=== PATIENT | female | born 2000 | race Caucasian/White ===

== ENCOUNTER 2020-07-04 15:01 | Emergency (ER) | payer OTHER ==
--- NOTE | 2020-07-04 15:23 | ER Document Report ---
ED Medical Screen (RME) - General Stated Complaint: HEADACHE, BLURRY VISION Time Seen by Provider: 07/04/20 15:18 Notes: HPI: 19-year-old female presenting for left temporal headache that has occurred twice in the last 4 days. Patient states it is a sharp pain through the left faith that results in blurring of vision in both eyes 20 to 30 seconds then completely resolves. Denies neck pain denies nausea vomiting. Denies weakness numbness or tingling, slurred speech or facial droop with this. She called her PCP who recommended she come to the emergency department. She is from out of town and will be going home this weekend and will be following up shortly with her PCP. Denies headache or blurred vision currently. No known family history of aneurysm PHYSICAL EXAMINATION: Patient is asymptomatic at this time. No photophobia. No nystagmus. Lung sounds are clear to auscultation regular rate and rhythm I have greeted and performed a rapid initial assessment of this patient. A comprehensive ED assessment and evaluation of the patient, analysis of test results and completion of medical decision making process will be conducted by an additional ED providers.
--- NOTE | 2020-07-04 16:06 | ER Document Report ---
Doctor's Note Notes: 07/04/20 16:02 19-year-old female I was asked see along with midlevel provider for evaluation of some headache symptoms. I have reviewed the chart in detail. I have personally supplemented history with patient and performed a bedside examination. Left temporal headache that has occurred twice in the last 4 days. Patient states it is a sharp pain through the left latter day that results in blurring of vision in both eyes 20 to 30 seconds then completely resolves. No reported trauma. No past history of headaches although her family history is strongly positive for migraine. Denies neck pain denies nausea vomiting. Denies weakness numbness or tingling, slurred speech or facial droop with this. Patient has recently been started on oral contraceptives. She called her PCP who recommended she come to the emergency department. She is from out of town and will be going home this weekend and will be following up shortly with her PCP. Denies headache or blurred vision currently. 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 She is unsure if she has had Pneumovax but thinks this is been administered. No regular medications History of GI intolerance for azithromycin with no true medication allergies reported. General exam and detailed neurologic exam remarkable only for some prominent nystagmus on lateral gaze in either direction. Findings and recommendations discussed with midlevel provider at the bedside. We agreed that we will get a CBC and a noncontrast head CT. I also told patient that if these studies are unremarkable she may wish to get back to her primary care provider to discuss possible new onset of migraine and to address current use of oral contraceptives in this regard.
--- NOTE | 2020-07-04 16:24 | RADIOLOGY REPORT (SQ) ---
EXAM DESCRIPTION: CT HEAD WITHOUT IMAGES COMPLETED DATE/TIME: 07/04/2020 4:09 pm REASON FOR STUDY: headache blurred vision COMPARISON: None. TECHNIQUE: Axial images acquired through the brain without intravenous contrast. Images reviewed wi th bone, brain and subdural windows. Additional sagittal and coronal reconstructions were generated. Images stored on PACS. All CT scanners at this facility use dose modulation, iterative reconstruction, and/or weight based d osing when appropriate to reduce radiation dose to as low as reasonably achievable (ALARA). [facility]: Dose Right [facility]: CareDose [facility]: Dose Right [facility]: Teradose 4D [facility]: FunnelFire RADIATION DOSE: CT Rad equipment meets quality standard of care and radiation dose reduction techniq ues were employed. CTDIvol: 53.2 mGy. DLP: 911 mGy-cm. mGy. LIMITATIONS: None. FINDINGS: VENTRICLES: Normal size and contour. CEREBRUM: No masses. No hemorrhage. No midline shift. No evidence for acute infarction. Normal gra y/white matter differentiation. No areas of low density in the white matter. CEREBELLUM: No masses. No hemorrhage. No alteration of density. No evidence for acute infarction. EXTRAAXIAL SPACES: No fluid collections. No masses. ORBITS AND GLOBE: No intra- or extraconal masses. Normal contour of globe without masses. CALVARIUM: No fracture. Multiple scattered venous lakes. No suspicious osseous lesions. PARANASAL SINUSES: No fluid or mucosal thickening. SOFT TISSUES: No mass or hematoma. OTHER: No other significant finding. IMPRESSION: NORMAL BRAIN CT WITHOUT CONTRAST. EVIDENCE OF ACUTE STROKE: NO. COMMENT: Quality ID # [id number]: Final reports with documentation of one or more dose reduction techniques (e.g., Automated exposure control, adjustment of the mA and/or kV according to patient size, use of iterative reconstruction technique) TECHNICAL DOCUMENTATION: JOB ID: [id number] 2010 [employer]- All Rights Reserved Reading location - IP/workstation name: [email or web address]
[2020-07-04 16:45] LABS: ABSOLUTE BASOPHILS # (AUTO) 0.1 10^3/uL (0.0-0.2); ABSOLUTE EOSINOPHILS # (AUTO) 0.1 10^3/uL (0.0-0.6); ABSOLUTE LYMPHOCYTES (AUTO) 1.3 10^3/uL (0.5-4.7); ABSOLUTE MONOCYTES (AUTO) 0.5 10^3/uL (0.1-1.4); ABSOLUTE NEUT (AUTO) 3.4 10^3/uL (1.7-8.2); BASOPHILS % (AUTO) 1.2 % (0-2); EOSINOPHILS % (AUTO) 1.1 % (0-6); HEMATOCRIT 36.2 % (36.0-47.0); HEMOGLOBIN 11.4 g/dL (12.0-15.5); LYMPHOCYTES % (AUTO) 24.7 % (13-45); MEAN CORPUSCULAR HEMOGLOBIN 22.4 pg (27.0-33.4); MEAN CORPUSCULAR HGB CONC 31.5 g/dL (32.0-36.0); MEAN CORPUSCULAR VOLUME 71 fl (80-97); MONOCYTES % (AUTO) 8.9 % (3-13); PLATELET COUNT 370 10^3/uL (150-450); RED BLOOD COUNT 5.09 10^6/uL (3.72-5.28); RED CELL DISTRIBUTION WIDTH 14.9 % (11.5-14.0); SEGMENTED NEUTROPHILS % (AUTO) 64.1 % (42-78); TOTAL CELLS COUNTED % (AUTO) 100 %; WHITE BLOOD COUNT 5.3 10^3/uL (4.0-10.5)
[2020-07-04 17:04] LABS: ALBUMIN 4.4 g/dL (3.5-5.0); ALKALINE PHOSPHATASE 47 U/L (38-126); ANION GAP 5 (5-19); ASPARTATE AMINO TRANSFERASE 19 U/L (14-36); BILIRUBIN,DIRECT 0.1 mg/dL (0.0-0.4); BILIRUBIN,TOTAL 0.5 mg/dL (0.2-1.3); BLOOD UREA NITROGEN 11 mg/dL (7-20); CALCIUM 9.8 mg/dL (8.4-10.2); CARBON DIOXIDE 27 mmol/L (22-30); CHLORIDE 104 mmol/L (98-107); GLUCOSE 84 mg/dL (75-110); POTASSIUM 4.8 mmol/L (3.6-5.0); TOTAL PROTEIN 7.6 g/dL (6.3-8.2)
--- NOTE | 2020-07-04 17:32 | ER Document Report ---
ED General - General Chief Complaint: Headache Stated Complaint: HEADACHE, BLURRY VISION Time Seen by Provider: 07/04/20 15:18 Primary Care Provider: [facility] [Provider Group] - Follow up as needed - HPI Notes: Patient is a 19-year-old female with no medical history who presents with episod ic headaches that began 6 days ago. Patient describes the episodes as a sharp bitemporal pain that comes on with blurred vision and nausea. She states these episodes last only about 20 seconds and completely resolved. Patient reports 2 episodes in the last 6 days. Patient is currently visiting the area and called her primary care provider back home who advised she come to the ED today. She has an appointment with her primary care in 2 days. She denies any dizziness, syncope, chest pain, and shortness of breath. She denies any history of head trauma or TBI. Patient denies any history of migraines but states her mother has migraines. 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 Patients she was recently restarted on OCP. - Related Data Allergies/Adverse Reactions: azithromycin Allergy (Verified 07/04/20 15:41) Home Medications: Control Past Medical History - General Information source: Patient - Social History Smoking Status: Current Every Day Smoker Chew tobacco use (# tins/day): No Frequency of alcohol use: Occasional Drug Abuse: None Family History: Other - Migraine headaches - mother Past Surgical History: Reports: Hx Kidney (Renal Surgery) Review of Systems - Review of Systems Constitutional: No symptoms reported EENT: See HPI Cardiovascular: No symptoms reported Respiratory: No symptoms reported Gastrointestinal: No symptoms reported Genitourinary: No symptoms reported Female Genitourinary: No symptoms reported Musculoskeletal: No symptoms reported Skin: No symptoms reported Hematologic/Lymphatic: No symptoms reported Neurological/Psychological: See HPI Physical Exam - Vital signs Vitals: Temp Pulse Resp BP Pulse Ox 98.8 F 64 16 130/76 H 100 07/04/20 15:22 07/04/20 15:22 07/04/20 15:22 07/04/20 15:22 07/04/20 15:22 - Notes Notes: PHYSICAL EXAMINATION: VITALS: Vitals reviewed and within normal limits. GENERAL: Well-appearing, well-nourished and in no acute distress. HEAD: Atraumatic, normocephalic. EYES: Pupils equal, round, and reactive to light. Extraocular movements intact. Sclera anicteric, conjunctiva are normal. ENT: Nares patent. Moist mucous membranes. Oropharynx clear without exudates. NECK: Normal range of motion, supple without lymphadenopathy. LUNGS: Breath sounds clear to auscultation bilaterally and equal. No wheezes, r ales, or rhonchi. HEART: Regular, rate, and rhythm without murmurs. ABDOMEN: Soft, nontender, normoactive bowel sounds. No guarding, no rebound. No masses appreciated. EXTREMITIES: Normal range of motion, no pitting or edema. No cyanosis. NEUROLOGICAL: Horizontal nystagmus noted for two beats on lateral gaze bilaterally. CN II-XII grossly intact. No pronator drift. Finger to nose testing intact. No focal neurological deficits. Moves all extremities spontaneously and on command. PSYCH: Normal mood, normal affect. SKIN: Warm, Dry, normal turgor, no rashes or lesions noted. Course - Re-evaluation Re-evalutation: Patient is a 19 y/o female who presents with episodes of headache and blurred vision that began six days ago. Vital signs are within normal limits. Normal neuro exam. I consulted my supervising physician, Dr. Yu, concerning this patient and he agrees to come and evaluate the patient. He recommends ordering basic labs and head CT. CBC shows microcytic anemia with a HGB of 11.4 but patient has been diagnosed with iron deficiency anemia and is supposed to be taking iron supplements which she states she is not currently taking. CMP is unremarkable and within normal limits. Serum HCG is negative. Head CT is negative with no acute findings. Headache was not maximal in onset, patient has no focal neurologic deficits, no nuchal rigidity, vital signs within normal limits, and patient is overall well in appearance. Based on clinical history and examination I do not suspect an acute subarachnoid hemorrhage, dural venous sinus thrombosis, acute meningitis, or intercranial mass. Patient instructed to take ibuprofen and tylenol as needed for her LALA. She is also instructed to follow up with her PCP as scheduled in two days. Return precautions given. Patient understands and is in agreement with the plan. Patient will be discharged home. - Vital Signs Vital signs: Temp Pulse Resp BP Pulse Ox 98.4 F 62 16 108/63 99 07/04/20 18:02 07/04/20 18:02 07/04/20 18:02 07/04/20 18:02 07/04/20 18:02 - Laboratory Results Result Diagrams: 07/04/20 16:27 07/04/20 16:27 Laboratory Results Interpreted: 07/04/20 07/04/20 16:27 16:27 Hgb 11.4 L MCV 71 L MCH 22.4 L MCHC 31.5 L RDW 14.9 H Sodium 136.0 L Critical Laboratory Results Reviewed: No Critical Results - Radiology Results Critical Radiology Results Reviewed: No Critical Results Discharge - Discharge Clinical Impression: Microcytic anemia Headache Qualifiers: Headache type: unspecified Headache chronicity pattern: unspecified pattern I ntractability: not intractable Qualified Code(s): R51.9 - Headache, unspecified Condition: Stable Disposition: HOME, SELF-CARE Additional Instructions: You have been seen in the Emergency Department (ED) for a headache. Please use Tylenol (acetaminophen) or Motrin (ibuprofen) as needed for symptoms, but only as written on the box. As we have discussed, please follow up with your primary care doctor as soon as possible regarding today's ED visit and your headache symptoms. Call your doctor or return to the ED if you have a worsening headache, sudden and severe headache, confusion, slurred speech, facial droop, weakness or numbness in any arm or leg, extreme fatigue, or other symptoms that concern you. Forms: Return to Work Referrals: [facility] [Provider Group] - Follow up as needed
[2020-07-04 18:03] VITALS: BP 108/63
== END 2020-07-04 18:03 | disposition home or self-care (01) ==
LOC: ER 15:01
DX: D50.9 Iron deficiency anemia, unspecified (principal); R51.9 Headache, unspecified; H53.8 Other visual disturbances; R11.0 Nausea; Z88.1 Allergy status to other antibiotic agents; F17.200 Nicotine dependence, unspecified, uncomplicated; Z79.899 Other long term (current) drug therapy
CPT/HCPCS: 36415; 70450; 80053; 84703; 85025; 99284